=== PATIENT | male | born 1970 | race Caucasian/White ===

== ENCOUNTER → 2018-02-18 | Emergency (ER) | payer OTHER ==
[~2018-02-18] VITALS: Ht 162.6 cm; Wt 74.8 kg
[~2018-02-18] MED LIST: CIPRO500 MG; DICY20TA; DITROPAN5 MG; FLAGYL500MG; KETO10TA2 PO; TAMS0.4C PO
== END | disposition home or self-care (01) ==
LOC: ER 16:43
DX: K57.90 Diverticulosis of intestine, part unspecified, without perforation or abscess without bleeding (principal); K80.20 Calculus of gallbladder without cholecystitis without obstruction; R10.32 Left lower quadrant pain

== ENCOUNTER 2018-02-20 21:55 | Emergency (ER) | payer OTHER ==
[~2018-02-20] VITALS: Ht 162.6 cm; Wt 70.3 kg
[~2018-02-20 21:55] MED LIST changes: -CIPRO500 MG; -DICY20TA; -DITROPAN5 MG; -FLAGYL500MG
[2018-02-20] MEDS ORDERED: FLAGYL500MG (22:28)
[2018-02-20] MEDS ORDERED: CIPRO500 MG (22:28)
[2018-02-20] MEDS ORDERED: DICY20TA (22:28)
[2018-02-20] MEDS ORDERED: DITROPAN5 MG (22:30)
[2018-02-21] MEDS ORDERED: FAMOTIDINE20 MG PO (02:21)
[2018-02-21] MEDS ORDERED: KETO10TA2 PO (02:21)
== END 2018-02-21 02:19 | disposition home or self-care (01) ==
LOC: ER 21:55
DX: K80.20 Calculus of gallbladder without cholecystitis without obstruction (principal)

== ENCOUNTER 2018-03-29 07:37 | Outpatient (CLI) | payer OTHER ==
[~2018-03-29 07:37] MED LIST changes: +CIPRO500 MG; +DICY20TA; +DITROPAN5 MG; +FAMOTIDINE20 MG PO; +FLAGYL500MG
== END 2018-03-29 07:47 | disposition home or self-care (01) ==
LOC: EKG 07:37
DX: K80.20 Calculus of gallbladder without cholecystitis without obstruction (principal); Z01.810 Encounter for preprocedural cardiovascular examination

== ENCOUNTER 2018-04-16 09:08 | Emergency (ER) | payer OTHER ==
[~2018-04-16] VITALS: Ht 162.6 cm; Wt 68.0 kg
[2018-04-17] MEDS ORDERED: ULTRACET PO (09:40)
[2018-04-17] MEDS ORDERED: ZANTAC300 MG PO (09:41)
[2018-04-17] MEDS ORDERED: KEFLEX500 MG PO (09:42)
== END 2018-04-16 12:01 | disposition home or self-care (01) ==
LOC: ER 09:08
DX: M54.5 Low back pain (principal)

== ENCOUNTER 2018-04-17 05:15 | Day surgery (SDC) | payer OTHER ==
[2018-04-17] MEDS ORDERED: ULTRACET PO (09:40)
[2018-04-17] MEDS ORDERED: ZANTAC300 MG PO (09:41)
[2018-04-17] MEDS ORDERED: KEFLEX500 MG PO (09:42)
== END 2018-04-17 10:40 | disposition home or self-care (01) ==
LOC: CIR.AMB 05:15
DX: K50.10 Crohn's disease of large intestine without complications (principal)